=== PATIENT | male | born 1970 | race Caucasian/White ===

== ENCOUNTER 2016-12-30 13:42 | Emergency (ER) | payer OTHER ==
[2016-12-30 14:39] LABS: BILIRUBIN NEGATIVE (NEGATIVE); BLOOD 2+ Ery/uL (NEGATIVE); CLARITY CLEAR (CLEAR); COLOR YELLOW (YELLOW); GLUCOSE (U) NORMAL (NORMAL); KETONE (U) NEGATIVE (NEGATIVE); LEUKOCYTES NEGATIVE Leu/uL (NEGATIVE); NITRITE NEGATIVE (NEGATIVE); PROTEIN NEGATIVE (NEGATIVE); SPECIFIC GRAVITY >=1.030 (1.001-1.030); UROBILINOGEN 0.2 mg/dL (0.2-1.0)
[2016-12-30 14:50] LABS: URINARY WBC RARE
[2016-12-30 15:12] LABS: BASOPHIL 0.1 % (0-2); EOSINOPHIL 1.8 % (0-5); HCT 44.6 % (42.0-52.0); HGB 14.9 g/dl (13.2-18.0); LYMPHOCYTE 32.9 % (15-48); MCH 32.6 pg (25.0-31.0); MCHC 33.4 g/dL (32.0-36.0); MCV 97.6 fL (78.0-100.0); MONOCYTE 10.1 % (0-12); MPV 9.5 fL (6.0-9.5); NEUTROPHIL 55.1 % (41-80); PLT 244 K/uL (150-400); RBC 4.57 M/uL (4.70-6.00); WBC 7.3 K/uL (4.0-10.5)
[2016-12-30 15:28] LABS: BILIRUBIN - TOTAL 0.2 mg/dL (0.1-1.0); CREATININE 0.6 mg/dL (0.7-1.2); GLOBULIN (CALCULATION) 2.7 g/dL (2.2-4.2); POTASSIUM 3.7 mmol/L (3.5-5.1); TOTAL PROTEIN 6.7 g/dL (6.4-8.3)
== END 2016-12-30 16:21 | disposition home or self-care (01) ==
LOC: FER 13:42
PROVIDERS: Nurse Practitioner
DX: K40.90 Unilateral inguinal hernia, without obstruction or gangrene, not specified as recurrent (principal); R31.9 Hematuria, unspecified; I25.2 Old myocardial infarction; F17.210 Nicotine dependence, cigarettes, uncomplicated; Z91.09 Other allergy status, other than to drugs and biological substances; Z79.899 Other long term (current) drug therapy
CPT/HCPCS: 36415; 80053; 81001; 85025; 87088

== ENCOUNTER 2020-06-12 02:05 | Emergency (ER) | payer OTHER ==
[~2020-06-12 02:05] MED LIST: AMOXICILLIN875 MG PO; ASPIRIN CHEWABL81 MG PO; AZITHROMYCIN250 MG PO; ETODOLAC500 MG PO; IBUPROFEN800 MG PO
[2020-06-12 02:45] LABS: INR 0.89 (0.9-1.2); PROTHROMBIN TIME 11.4 SECONDS (11.4-13.6)
[2020-06-12 02:46] LABS: PTT 28.6 SECONDS (22.2-34.7)
[2020-06-12 02:52] LABS: BASOPHIL 0.7 % (0-2); EOSINOPHIL 3.8 % (0-5); HCT 47.7 % (42.0-52.0); HGB 15.9 g/dl (13.2-18.0); LYMPHOCYTE 29.6 % (15-48); MCH 32.2 pg (25.0-31.0); MCHC 33.3 g/dL (32.0-36.0); MCV 96.6 fL (78.0-100.0); MPV 9.6 fL (6.0-9.5); NEUTROPHIL 56.6 % (41-80); NRBC 0; PLT 333 K/uL (150-400); RBC 4.94 M/uL (4.70-6.00); RDW 13.9 % (11.5-14.0)
[2020-06-12 02:56] LABS: ALBUMIN 3.7 g/dL (3.4-5.0); BILIRUBIN - TOTAL 0.3 mg/dL (0.2-1.0); BUN/CREAT RATIO (CALC) 17.9 RATIO; CREATININE 0.67 mg/dL (0.67-1.17); GLOBULIN (CALCULATION) 3.3 g/dL; MAGNESIUM 2.2 mg/dL (1.8-2.4); POTASSIUM 3.5 mmol/L (3.5-5.1)
[2020-06-12 03:01] LABS: PRO-BNP 13 pg/mL (<125)
== END 2020-06-12 03:25 | disposition left against medical advice (07) ==
LOC: FER 02:05
PROVIDERS: Emergency Medicine
DX: R07.9 Chest pain, unspecified (principal); I10 Essential (primary) hypertension; F17.210 Nicotine dependence, cigarettes, uncomplicated; Z88.8 Allergy status to other drugs, medicaments and biological substances
CPT/HCPCS: 36415; 71045; 80053; 83735; 83880; 84484; 85025; 85610; 85730; 93005